=== PATIENT | male | born 1965 | race Caucasian/White ===

== ENCOUNTER 2019-09-12 07:37 | Day surgery (SDC) | payer OTHER ==
[2019-09-12] MEDS ORDERED: Lidocaine 1% PF 2 ML SDV INJECT ONE (07:38)
[2019-09-12] MEDS ORDERED: Propofol 200 MG/20 ML SDV IV ONE (07:38)
[2019-09-12] MEDS ORDERED: Lactated Ringers 1,000 ML IV SCH (09:30)
[2019-09-12] MEDS ORDERED: Sodium Chloride 0.9% 10 ML Syringe FLUSH PRN (09:30)
--- NOTE | 2019-09-12 09:57 | PCM.OPNOTE ---
- General Post-Op/Procedure Note Date of Surgery/Procedure: 09/12/19 Operative Procedure(s): c scope with biopsy Findings: transverse and descending colon polyp diverticulosis Pre Op Diagnosis: screening Post-Op Diagnosis: transverse and descending colon polyp. diverticulosis Anesthesia Technique: SALLY Primary Surgeon: Nathan Duenas Anesthesia Provider: Earl Parker Pathology: colon polyps x2 Complications: None Condition: Good Free Text/Narrative:: see dictation
--- NOTE | 2019-09-12 14:27 | OR ---
DATE OF OPERATION: 09/12/2019 SURGEON: Nathan Duenas MD PROCEDURE PERFORMED: Colonoscopy with cold forceps and hot loop snare biopsy. PREOPERATIVE DIAGNOSIS: Need for colon cancer screening. POSTOPERATIVE DIAGNOSIS: Colon polyp of the descending and transverse colon, as well as diverticulosis of the descending and sigmoid colon. INDICATIONS FOR PROCEDURE: This is a 54-year-old male, who presents for screening colonoscopy. He is without complaints. DESCRIPTION OF OPERATION: After an excellent IV sedation was administered, digital rectal exam was performed. No marked abnormality was noted. Flexible colonoscope was inserted and advanced to the cecum. The prep was excellent. The following findings were noted: Ascending colon, unremarkable. Transverse colon, distal transverse colon, small polypoid lesion, biopsied with cold biopsy forceps and sent for permanent. Descending colon, scattered diverticula, polypoid lesion, biopsied with the hot loop snare and submitted. Sigmoid, scattered diverticula. Rectum and anus, unremarkable. The patient tolerated the procedure well, was taken to Recovery in good condition. Results will be sent by letter. /[id number] /MODL
== END 2019-09-12 10:40 | disposition home or self-care (01) ==
LOC: FB.SDS 07:37
PROVIDERS: ATTEND Surgery
DX: Z12.11 Encounter for screening for malignant neoplasm of colon (principal); D12.4 Benign neoplasm of descending colon; K57.30 Diverticulosis of large intestine without perforation or abscess without bleeding; F17.210 Nicotine dependence, cigarettes, uncomplicated; Z98.890 Other specified postprocedural states
CPT/HCPCS: 88305; J2001; J2704; J7120

== ENCOUNTER 2019-12-10 17:30 | Emergency (ER) | payer OTHER ==
[2019-12-10] MEDS ORDERED: Amoxicillin/Clavulanate K 500-125 MG Tab PO ONE (17:31)
[2019-12-10] MEDS ORDERED: Lidocaine 2% Viscous Solution 15 ML Cup PO ONE (18:59)
[2019-12-10] MEDS ORDERED: Ketorolac 60 MG/2 ML SDV IM ONE (18:59)
--- NOTE | 2019-12-10 19:11 | EDM.PDOC ---
ED HPI GENERAL MEDICAL PROBLEM - General Stated Complaint: SWOLLEN TOOTH Time Seen by Provider: 12/10/19 18:25 Source of Information: Reports: Patient History Limitations: Reports: No Limitations - History of Present Illness INITIAL COMMENTS - FREE TEXT/NARRATIVE: c/o pain and swell of R face from [place], worked [place] since 04/17 saw dentist in [facility] several months ago to pull a tooth, has poor dentition awoke with pain over R max sinus at 2p, went to work at 4p and co-workers advised him to come to ED no fever usually takes Aleve 4 tabs daily for myalgias when working - Related Data Allergies Allergy/AdvReac Type Severity Reaction Status Date / Time No Known Allergies Allergy Verified 09/12/19 08:57 Home Meds: Home Meds NK [No Known Home Meds] 09/12/19 [History] Past Medical History - Past Health History Medical/Surgical History: Denies Medical/Surgical History Social & Family History - Caffeine Use Caffeine Use: Reports: Coffee, Soda ED ROS ENT - Review of Systems Review Of Systems: See Below Constitutional: Reports: No Symptoms HEENT: Reports: Dental Pain, Other (face pain). Denies: Rhinitis Respiratory: Reports: No Symptoms Endocrine: Reports: No Symptoms GI/Abdominal: Reports: No Symptoms : Reports: No Symptoms Musculoskeletal: Reports: No Symptoms Skin: Reports: No Symptoms Neurological: Reports: No Symptoms Psychiatric: Reports: No Symptoms Hematologic/Lymphatic: Reports: No Symptoms Immunologic: Reports: No Symptoms ED EXAM, ENT - Physical Exam Exam: See Below Exam Limited By: No Limitations General Appearance: Alert, WD/WN, No Apparent Distress, Other (alert, friendly, very polite) Nose: Normal Inspection, Normal Mucousa Mouth/Throat: Normal Lips, Normal Oropharynx, Other (very poor dentition, mild swell just to R of nares with 1+ tender, ant wall max sinus NT, has multiple deeply eroded teeth including #4-5 with 1+ tender in same area, mainly medially, gum no red/swollen/tender, TMs wnl, nares with 40% swell b/l with d/c, conj neg, neck supple no LNs) Head: Atraumatic, Normocephalic Neck: Normal Inspection, Supple, Non-Tender, Full Range of Motion. No: Lymphadenopathy (R), Lymphadenopathy (L) Respiratory/Chest: Lungs Clear, Normal Breath Sounds Cardiovascular: Regular Rate, Rhythm, No Edema Psychiatric: Normal Affect, Normal Mood Skin: Warm, Dry, Intact, Normal Color, No Rash Lymphatic: No Adenopathy Course - Orders/Labs/Meds Orders: Active Orders 24 hr Category Date Time Status Ketorolac [Toradol] Med 12/10/19 18:59 Once 60 mg IM ONETIME ONE Lidocaine 2% [Xylocaine 2% Viscous] Med 12/10/19 18:59 Once 15 ml PO ONETIME ONE Departure - Departure Time of Disposition: 19:06 Disposition: Home, Self-Care 01 Condition: Good Clinical Impression: Dental abscess, Pain, dental, Caries - Discharge Information *PRESCRIPTION DRUG MONITORING PROGRAM REVIEWED*: Not Applicable *COPY OF PRESCRIPTION DRUG MONITORING REPORT IN PATIENT MICHEAL: Not Applicable Instructions: Dental Abscess, Acute Pain, Adult Referrals: PCP,None [Primary Care Provider] - Forms: ED Return to Work/School Form Additional Instructions: For infection, take amoxicillin-clavulante 500-125 mg 1 tab 2 times a day for 7 days. For pain, put thin layer of 2% viscous lidocaine on cotton ball and bite down every hour as needed. For pain, take Aleve 2 tabs when you get up, 1 tab in middle of day, and 2 tabs when you go to bed. For pain, take acetaminophen 500 mg 2 tabs 3 times a day at the same time as the Aleve. Use ice for 10 minutes every 2 hours for 1-2 hours. Eat cool, soft food (applesauce, jello, jogurt, sherbet, etc). Drink cool liquids. Avoid chewing on the right side of your mouth. See your dentist in 2 days. No work for 2 days. Return to ED if you feel worse. - My Orders Last 24 Hours: My Active Orders 12/10/19 18:59 Ketorolac [Toradol] 60 mg IM ONETIME ONE Lidocaine 2% [Xylocaine 2% Viscous] 15 ml PO ONETIME ONE - Assessment/Plan Last 24 Hours: My Active Orders 12/10/19 18:59 Ketorolac [Toradol] 60 mg IM ONETIME ONE Lidocaine 2% [Xylocaine 2% Viscous] 15 ml PO ONETIME ONE
== END 2019-12-10 19:25 | disposition home or self-care (01) ==
LOC: FB.ED 17:30
DX: K04.7 Periapical abscess without sinus (principal); K02.9 Dental caries, unspecified; K00.7 Teething syndrome
CPT/HCPCS: 96372; 99282; A9270; J1885; 99283